=== PATIENT | male | born 1955 | race Caucasian/White ===

== ENCOUNTER → 2018-12-04 | Outpatient (CLI) | payer OTHER ==
--- NOTE | 2018-12-11 07:17 | SP ---
DATE OF PROCEDURE: 12/04/2018 INDICATION: This is an outpatient study done on 12/04/2018 for a 63-year-old gentleman with history of aneurysmal surgery, dizziness, and forgetfulness. DESCRIPTION OF PROCEDURE: Routine EEG was recorded digitally. Wzlpj-tr-vvizf and xzumx-do-hco mary kate ges were recorded and reviewed. All impedances were measured and recorded. Cap electrodes were plac ed in accordance to International 10-20 system of electrode placement. FINDINGS: Symmetrically distributed background activity of low to medium amplitude was seen in the a wake state ranging in frequency between 8 to 10 cycles per second. This activity attenuates with eye opening. Photic stimulation produces normal driving. Hyperventilation elicits no epileptiform acti vity. No epileptiform transients were seen. No signs of ongoing electrographic seizures or laterali zed slowing. IMPRESSION: Normal study. Please correlate clinically. Dictated By: BITA SALAZAR/RADHA Conf#: [id number] DID#: [id number]
== END | disposition home or self-care (01) ==
LOC: EEG 09:55
PROVIDERS: ATTEND Family Medicine Adult Medicine
DX: R41.3 Other amnesia (principal)
CPT/HCPCS: 95819